=== PATIENT | female | born 1980 | race Caucasian/White ===

== ENCOUNTER 2018-11-08 11:22 | Outpatient (CLI) | payer OTHER, SELFPAY ==
[2018-11-08 13:48] LABS: ALT 28 U/L (12-78); AST 23 U/L (15-37); Albumin 3.6 g/dL (3.4-5.0); Alkaline Phosphatase 76 U/L (46-116); Anion Gap 10.1 mmol/L (3-11); BUN 12 mg/dL (7-18); Bilirubin, Total 0.3 mg/dL (0.2-1.0); CO2 24.9 mmol/L (21.0-32.0); CREATININE 0.77 mg/dL (0.55-1.02); Calcium 8.8 mg/dL (8.5-10.1); Chloride 102 mmol/L (98-107); Cholesterol 215 mg/dL (50-200); Glucose 150 mg/dL (70-100); HDL Cholesterol 38 mg/dL (40-60); LDL CHOLESTEROL 159 mg/dL (<100); Potassium 5.5 mmol/L (3.5-5.1); Sodium 137 mmol/L (136-145); TSH (W/Ref FT4) 1.75 uIU/mL (0.358-3.74); Total Protein 7.8 g/dL (6.4-8.2); Triglyceride 98 mg/dL (30-150); Vitamin B12 704 pg/mL (193-986)
== END 2018-11-08 11:42 ==
PROVIDERS: PCP Family Medicine; Visit Provider Nurse Practitioner Family
DX: E11.65 Type 2 diabetes mellitus with hyperglycemia (principal); N92.6 Irregular menstruation, unspecified; R20.2 Paresthesia of skin; E66.9 Obesity, unspecified
CPT/HCPCS: 36415; 80053; 80061; 83721; 82607; 84443

== ENCOUNTER 2019-02-06 05:15 | Emergency (ER) | payer OTHER, SELFPAY ==
[2019-02-06 05:18] VITALS: BP 125/61; PULSE 64; RESP 16; TEMP 36.9; O2SAT 96
--- NOTE | 2019-02-06 05:31 | ED.GENADUL_ITS ---
Discharge Plan Disposition Patient Disposition: HOME Discharge Details Chief Complaint: RespSymp Clinical Impression: Bronchitis Primary Care Provider: Sarthak Lorenzana ED Provider: Edwardo Richter Home Meds and New Rx's Prescriptions: New azithromycin 250 mg tablet 250 mg PO DAILY 4 Days Qty: 4 RF: 0 Continued Tresiba U-100 Insulin 100 unit/mL Solution 84 unit subcut DAILY RF: 0 Discharge Instructions Instructions: Acute Bronchitis (ED), Acute Cough (ED) Additional Instructions: Please take antibiotic as prescribed. Be sure to drink plenty of fluids and allow for plenty of rest over the next 4 days. Monitor your blood glucose closely. Take your insulin as prescribed. Please contact your primary care physician to arrange follow-up. Call tomorrow. Timely outpatient follow-up this week is important. Return to the ER immediately for any worsening or new concerning symptoms. Medical Decision Making A medical screening exam was performed. 38-year-old female here with cough intermittently productive for the past 3 weeks. Patient is saturating well in no respiratory distress. Lung auscultation is unremarkable. Suspect bronchitis. Will treat with azithromycin. Patient has had elevated blood glucose over the past few weeks. She is taking her insulin. Fingerstick blood sugar here was 202. Patient was instructed to monitor her blood sugar closely, keep a log and to follow-up with her primary care physician to discuss insulin dosing. Recommend the patient call her primary care physician on Thursday to arrange timely follow-up. HPI General Mode of arrival: ambulatory . Date/Time Provider Initiated Documentation: 02/06/19 05:22 . Limitations to Documentation: no limitations . Information obtained by: patient . HPI Narrative: 38-year-old female presents with chief complaint of cough. Patient is she has had cough for 3 weeks. Cough is intermittently productive of green sputum. Cough is moderate to severe. No modifiers. No recent travel. No associated fever, breath or chest pain. Patient does note that her blood sugar has been intermittently elevated. She is taking her insulin as prescribed. Related Data Home Medications Medication Instructions Recorded Confirmed Tresiba U-100 Insulin 84 unit SUBCUT DAILY 02/06/19 02/06/19 azithromycin 250 mg PO DAILY 4 Days #4 tab 02/06/19 Previous Rx's Medication Instructions Recorded azithromycin 250 mg PO DAILY 4 Days #4 tab 02/06/19 Allergies Allergy/AdvReac Type Severity Reaction Status Date / Time acetaminophen [From Vicodin] Allergy Skin Rash Unverified 02/06/19 05:22 amoxicillin Allergy Skin Rash Unverified 02/06/19 05:22 hydrocodone [From Vicodin] Allergy Skin Rash Unverified 02/06/19 05:22 General Stated Complaint: RespSymp NIEVES: 4 Review of Systems Review of Systems All systems reviewed & are unremarkable except as noted in HPI and below Constitutional Denies fever(s) Respiratory Reports cough PFSH Medical History Diabetes (Chronic) Social History Smoking/Tobacco Use Status: Never Substance use type: does not use Do you feel safe at home: Yes Do you feel safe in your relationship?: Yes Exam Const General: cooperative, comfortable and no acute distress Nutritional Appearance: obese Orientation: alert and awake HENMT Mouth: moist mucous membranes Throat: posterior oropharynx normal Eyes Conjunctivae: normal conjunctivae Neck Neck: trachea midline and supple Resp Effort & Inspection: normal respiratory effort, cough, not labored and no respiratory distress Auscultation: clear to auscultation bilaterally, no rales, no rhonchi and no wheezes Cardio Jugular venous pressure: no JVD Rate: regular rate and not tachycardic Rhythm: regular rhythm GI Palpation: soft, not firm, no guarding, no masses, not rigid and nontender Skin General skin exam: no rashes or lesions noted Neuro General: alert, awake and tone normal Extrem General: no edema Psych Appearance: grossly normal Course Vital Signs Temperature 36.9 C 02/06/19 05:18 Pulse 64 02/06/19 05:18 Respiratory Rate 16 02/06/19 05:18 Blood Pressure 125/61 02/06/19 05:18 Pulse Oximetry 96 02/06/19 05:18 Temperature 36.9 C 02/06/19 05:18 Pulse 64 02/06/19 05:18 Respiratory Rate 16 02/06/19 05:18 Respiratory Effort 02/06/19 05:24 Respiratory Depth Normal 02/06/19 05:24 Blood Pressure 125/61 02/06/19 05:18 Pulse Oximetry 96 02/06/19 05:18 Pain Level 3 02/06/19 05:18
[2019-02-06] MEDS: Azithromycin 250 MG TAB 500 MG PO (05:34)
== END 2019-02-06 05:42 | disposition home or self-care (01) ==
LOC: ER 05:32
PROVIDERS: Emergency Provider Student in an Organized Health Care Education/Training Program; PCP Family Medicine
DX: J18.9 Pneumonia, unspecified organism (principal); E11.9 Type 2 diabetes mellitus without complications; Z79.4 Long term (current) use of insulin
CPT/HCPCS: 36416; 82962; 99283

== ENCOUNTER 2019-04-10 16:15 | Emergency (ER) | payer OTHER, SELFPAY ==
[2019-04-10 16:19] VITALS: BP 108/73; PULSE 77; RESP 18; TEMP 36.7; O2SAT 97
--- NOTE | 2019-04-10 16:36 | W.ED.GENAD ---
Discharge Plan Disposition Patient Disposition: HOME Condition: Fair Discharge Details Chief Complaint: Headache Clinical Impression: Sinusitis, URI (upper respiratory infection) Primary Care Provider: Keisha Lo ED Provider: Elisa Summers Home Meds and New Rx's Prescriptions: New doxycycline hyclate 100 mg capsule 100 mg PO BID Qty: 14 RF: 0 Continued Tresiba U-100 Insulin 100 unit/mL Solution 84 unit subcut DAILY RF: 0 diphenhydramine HCl [Benadryl] 25 mg Capsule PRNRF: 0 Discharge Instructions Instructions: Doxycycline (By mouth), Sinusitis (ED) Additional Instructions: Encourage hydration. Tylenol and ibuprofen as needed for discomfort. May use nasal saline to help with symptom medic management. Please take doxycycline as prescribed. Even if symptoms improve, please take the entire course. If you develop increased pain, fever/chills, or other new/worsening symptoms please seek care urgently once again. Please follow-up with primary care in 1 week if not improved Referrals: Keisha Lo [Primary Care Provider] - Discharge Data Discharge Date/Time-TO BE ENTERED AT DEPARTURE: 04/10/19 17:08 Medical Decision Making Patient is a 38-year-old female presenting today with chief complaint of sinus pain. She reports that symptoms began a week ago and that they have progressively been increasing. Patient denies any fevers or chills. States that she is having both frontal and maxillary sinus pain. Endorses nasal congestion but states that she has had difficulty getting any nasal discharge. States that she has had a mild sore throat mild cough. No shortness of breath or chest pain. No GI upset. Bilateral otalgia. On exam, patient has tenderness with palpation and percussion about the frontal and maxillary sinuses bilaterally. Otherwise, exam is benign. Lungs are clear bilaterally. Given the patient's progression of symptoms, will treat with antibiotics. We discussed [id number] medications that may be of benefit to help with symptomatic management. UPT negative. She will follow-up with primary care in 1 week if symptoms persist. All of her questions and concerns were addressed she is in agreement this plan. She will return with new or worsening symptoms. HPI General Mode of arrival: ambulatory. Date/Time Provider Initiated Documentation: 04/10/19 16:35. Limitations to Documentation: no limitations. Information obtained by: patient and RN notes reviewed. History of Present Illness 38 year old F presents to the emergency department with the chief complaint of sinus pain, URI sxs, described as moderate, with intensity rated at 5. and is localized to the face. Patient reports no radiation. Patient started experiencing this week(s) (1) and it has been constant (worsening). No relieving factors improve symptom(s), No exacerbating factors reported . Patient notes cough and headaches (facial pain, associates with sinuses); denies chest pain, diaphoresis, fever/chills, loss of appetite, nausea/vomiting, rash, shortness of breath and weakness. Patient did receive the following treatments prior to arrival, NSAID and other (antihistamines) Related Data Home Medications Medication Instructions Recorded Confirmed Tresiba U-100 Insulin 84 unit SUBCUT DAILY 02/06/19 04/10/19 diphenhydramine HCl [Benadryl] PRN 04/10/19 doxycycline hyclate 100 mg PO BID #14 cap 04/10/19 Previous Rx's Medication Instructions Recorded doxycycline hyclate 100 mg PO BID #14 cap 04/10/19 Allergies Allergy/AdvReac Type Severity Reaction Status Date / Time amoxicillin Allergy Skin Rash Unverified 04/10/19 16:48 hydrocodone [From Vicodin] Allergy Skin Rash Unverified 04/10/19 16:48 General Stated Complaint: Headache NIEVES: 3 Review of Systems Constitutional Reports as per HPI, Denies chills, Reports fatigue, Denies fever(s), Reports headache(s) (Sinus pain) and Denies poor appetite Eyes Reports as per HPI, Denies eye discharge and Denies irritation ENT Reports as per HPI, Denies change in voice, Denies ear discharge, Denies otalgia, Reports headache(s) (Sinus pain), Reports nasal congestion, Denies nasal discharge, Reports sinus pain, Reports sinus pressure and Reports sore throat Cardiovascular Reports as per HPI, Denies chest pain and Denies dyspnea Respiratory Reports as per HPI and Denies dyspnea Gastrointestinal Reports as per HPI, Denies abdominal pain, Denies change in bowel habits, Denies nausea and Denies vomiting Integumentary/Breasts Reports as per HPI and Denies rash Neurologic Reports as per HPI and Reports headache(s) (Sinus pain) Endocrine Reports fatigue [facility] Medical History Diabetes (Chronic) Social History Smoking/Tobacco Use Status: Never Alcohol Intake: never Substance use type: does not use Do you feel safe at home: Yes Do you feel safe in your relationship?: Yes Exam Const General: cooperative, healthy appearing, comfortable, no acute distress, well developed and well groomed Nutritional Appearance: average body habitus and well nourished Orientation: alert and awake [facility] Head: normal to inspection, normocephalic and atraumatic Ears: hearing grossly normal bilaterally, external ears normal and TM's normal bilaterally General nose exam: external nose normal and nares normal Face and sinus: normal facial exam, face symmetric and sinus tenderness frontal and maxillary Mouth: oral mucosae normal, lip normal, tongue normal, oropharynx normal and moist mucous membranes Teeth and gingiva: dentition normal Throat: posterior oropharynx normal, tonsils normal and uvula midline Eyes General: appearance normal, both eyes and all related structures Neck Neck: normal visual inspection, full ROM, no lymphadenopathy and no meningeal signs Resp Effort & Inspection: normal respiratory effort, able to speak in complete sentences and no respiratory distress Auscultation: clear to auscultation bilaterally, no rales, no rhonchi and no wheezes Cardio Rate: regular rate Rhythm: regular rhythm Heart Sounds: S1 normal and S2 normal Skin General skin exam: no rashes or lesions noted Neuro General: alert and awake Cognition: normal cognition Speech: speech normal Gait: normal gait Psych Appearance: grossly normal and well kempt Mental Status: mental status grossly normal Speech and Movement: speech and movement normal Course Vital Signs Temperature 36.7 C 04/10/19 16:19 Pulse 77 04/10/19 16:19 Respiratory Rate 18 04/10/19 16:19 Blood Pressure 108/73 04/10/19 16:19 Pulse Oximetry 97 04/10/19 16:19 Temperature 36.7 C 04/10/19 16:19 Temperature Source Temporal Artery Scan 04/10/19 16:19 Pulse 77 04/10/19 16:19 Respiratory Rate 18 04/10/19 16:19 Blood Pressure 108/73 04/10/19 16:19 Pulse Oximetry 97 04/10/19 16:19 Oxygen Delivery Method Room Air 06/02/19 16:19 Oxygen Flow Rate 0 04/10/19 16:19 Pain Level 8 04/10/19 16:19
--- NOTE | 2019-04-10 16:46 | ED.GENADUL_ITS ---
Discharge Plan Disposition Patient Disposition: HOME Condition: Fair Discharge Details Chief Complaint: Headache Clinical Impression: Sinusitis, URI (upper respiratory infection) Primary Care Provider: Keisha Lo ED Provider: Elisa Summers Home Meds and New Rx's Prescriptions: New doxycycline hyclate 100 mg capsule 100 mg PO BID Qty: 14 RF: 0 Continued Tresiba U-100 Insulin 100 unit/mL Solution 84 unit subcut DAILY RF: 0 diphenhydramine HCl [Benadryl] 25 mg Capsule PRNRF: 0 Discharge Instructions Instructions: Doxycycline (By mouth), Sinusitis (ED) Additional Instructions: Encourage hydration. Tylenol and ibuprofen as needed for discomfort. May use nasal saline to help with symptom medic management. Please take doxycycline as prescribed. Even if symptoms improve, please take the entire course. If you develop increased pain, fever/chills, or other new/worsening symptoms please seek care urgently once again. Please follow-up with primary care in 1 week if not improved Referrals: Keisha Lo [Primary Care Provider] - Discharge Data Discharge Date/Time-TO BE ENTERED AT DEPARTURE: 04/10/19 17:08 Medical Decision Making Patient is a 38-year-old female presenting today with chief complaint of sinus pain. She reports that symptoms began a week ago and that they have progressively been increasing. Patient denies any fevers or chills. States that she is having both frontal and maxillary sinus pain. Endorses nasal congestion but states that she has had difficulty getting any nasal discharge. States that she has had a mild sore throat mild cough. No shortness of breath or chest pain. No GI upset. Bilateral otalgia. On exam, patient has tenderness with palpation and percussion about the frontal and maxillary sinuses bilaterally. Otherwise, exam is benign. Lungs are clear bilaterally. Given the patient's progression of symptoms, will treat with antibiotics. We discussed [id number] medications that may be of benefit to help with symptomatic management. UPT negative. She will follow-up with primary care in 1 week if symptoms persist. All of her questions and concerns were addressed she is in agreement this plan. She will return with new or worsening symptoms. HPI General Mode of arrival: ambulatory . Date/Time Provider Initiated Documentation: 04/10/19 16:35 . Limitations to Documentation: no limitations . Information obtained by: patient and RN notes reviewed . History of Present Illness 38 year old F presents to the emergency department with the chief complaint of sinus pain, URI sxs, described as moderate, with intensity rated at 5. and is localized to the face. Patient reports no radiation. Patient started experiencing this week(s) (1) and it has been constant (worsening). No relieving factors improve symptom(s), No exacerbating factors reported . Patient notes cough and headaches (facial pain, associates with sinuses); denies chest pain, diaphoresis, fever/chills, loss of appetite, nausea/vomiting, rash, shortness of breath and weakness. Patient did receive the following treatments prior to arrival, NSAID and other (antihistamines) Related Data Home Medications Medication Instructions Recorded Confirmed Tresiba U-100 Insulin 84 unit SUBCUT DAILY 02/06/19 04/10/19 diphenhydramine HCl [Benadryl] PRN 04/10/19 doxycycline hyclate 100 mg PO BID #14 cap 04/10/19 Previous Rx's Medication Instructions Recorded doxycycline hyclate 100 mg PO BID #14 cap 04/10/19 Allergies Allergy/AdvReac Type Severity Reaction Status Date / Time amoxicillin Allergy Skin Rash Unverified 04/10/19 16:48 hydrocodone [From Vicodin] Allergy Skin Rash Unverified 04/10/19 16:48 General Stated Complaint: Headache NIEVES: 3 Review of Systems Constitutional Reports as per HPI, Denies chills, Reports fatigue, Denies fever(s), Reports headache(s) (Sinus pain) and Denies poor appetite Eyes Reports as per HPI, Denies eye discharge and Denies irritation ENT Reports as per HPI, Denies change in voice, Denies ear discharge, Denies otalgia, Reports headache(s) (Sinus pain), Reports nasal congestion, Denies nasal discharge, Reports sinus pain, Reports sinus pressure and Reports sore throat Cardiovascular Reports as per HPI, Denies chest pain and Denies dyspnea Respiratory Reports as per HPI and Denies dyspnea Gastrointestinal Reports as per HPI, Denies abdominal pain, Denies change in bowel habits, Denies nausea and Denies vomiting Integumentary/Breasts Reports as per HPI and Denies rash Neurologic Reports as per HPI and Reports headache(s) (Sinus pain) Endocrine Reports fatigue [facility] Medical History Diabetes (Chronic) Social History Smoking/Tobacco Use Status: Never Alcohol Intake: never Substance use type: does not use Do you feel safe at home: Yes Do you feel safe in your relationship?: Yes Exam Const General: cooperative, healthy appearing, comfortable, no acute distress, well developed and well groomed Nutritional Appearance: average body habitus and well nourished Orientation: alert and awake [facility] Head: normal to inspection, normocephalic and atraumatic Ears: hearing grossly normal bilaterally, external ears normal and TM's normal bilaterally General nose exam: external nose normal and nares normal Face and sinus: normal facial exam, face symmetric and sinus tenderness frontal and maxillary Mouth: oral mucosae normal, lip normal, tongue normal, oropharynx normal and moist mucous membranes Teeth and gingiva: dentition normal Throat: posterior oropharynx normal, tonsils normal and uvula midline Eyes General: appearance normal, both eyes and all related structures Neck Neck: normal visual inspection, full ROM, no lymphadenopathy and no meningeal signs Resp Effort & Inspection: normal respiratory effort, able to speak in complete sentences and no respiratory distress Auscultation: clear to auscultation bilaterally, no rales, no rhonchi and no wheezes Cardio Rate: regular rate Rhythm: regular rhythm Heart Sounds: S1 normal and S2 normal Skin General skin exam: no rashes or lesions noted Neuro General: alert and awake Cognition: normal cognition Speech: speech normal Gait: normal gait Psych Appearance: grossly normal and well kempt Mental Status: mental status grossly normal Speech and Movement: speech and movement normal Course Vital Signs Temperature 36.7 C 04/10/19 16:19 Pulse 77 04/10/19 16:19 Respiratory Rate 18 04/10/19 16:19 Blood Pressure 108/73 04/10/19 16:19 Pulse Oximetry 97 04/10/19 16:19 Temperature 36.7 C 04/10/19 16:19 Temperature Source Temporal Artery Scan 04/10/19 16:19 Pulse 77 04/10/19 16:19 Respiratory Rate 18 04/10/19 16:19 Blood Pressure 108/73 04/10/19 16:19 Pulse Oximetry 97 04/10/19 16:19 Oxygen Delivery Method Room Air 06/02/19 16:19 Oxygen Flow Rate 0 04/10/19 16:19 Pain Level 8 04/10/19 16:19
[2019-04-10] MEDS: Ibuprofen 600 MG TAB (17:09)
[2019-04-10] MEDS: Doxycycline Hyclate 100 MG CAP 200 MG PO (17:09)
[2019-04-10] MEDS: Acetaminophen 500 MG TAB (17:09)
[2019-04-10 17:16] VITALS: BP 108/73; PULSE 77; RESP 18; TEMP 36.7; O2SAT 97
== END 2019-04-10 17:08 | disposition home or self-care (01) ==
PROVIDERS: Emergency Provider Physician Assistant; PCP Physician Assistant Medical
DX: J01.90 Acute sinusitis, unspecified (principal); J06.9 Acute upper respiratory infection, unspecified; E11.9 Type 2 diabetes mellitus without complications
CPT/HCPCS: 99283